=== PATIENT | male | born 2005 | race Hispanic/Latino ===

== ENCOUNTER 2025-04-03 09:22 | Inpatient (IN) | payer OTHER ==
[~2025-04-03] VITALS: Ht 170.2 cm; Wt 56.7 kg
[~2025-04-03 09:22] MED LIST: IBUP600T42 PO; METH-1164 PO
[2025-04-03 10:11] LABS: PLATELET COUNT, AUTOMATED 326 10^3/uL (150-450)
[2025-04-03 10:31] LABS: PHENCYCLIDINE URINE NEGATIVE (NEGATIVE)
[2025-04-03 10:32] LABS: AMPHETAMINES LEVEL URINE NEGATIVE (NEGATIVE); BARBITURATES URINE NEGATIVE (NEGATIVE); BENZODIAZEPINES URINE NEGATIVE (NEGATIVE); CANNABINOIDS URINE NEGATIVE (NEGATIVE); COCAINE METABOLITE URINE NEGATIVE (NEGATIVE); METHADONE URINE NEGATIVE (NEGATIVE); OPIATES URINE NEGATIVE (NEGATIVE)
[2025-04-03 10:33] LABS: ETHYL ALCOHOL (ETHANOL) 0.006 % (0.000-0.010)
[2025-04-03 10:35] LABS: SALICYLATE LEVEL < 3.0 MG/DL (<30)
[2025-04-03 10:36] LABS: ALT/SGPT 17 U/L (7.0-40); AST/SGOT 19 U/L (<34); CALCIUM LEVEL 9.1 MG/DL (8.5-10.1); CARBON DIOXIDE LEVEL 27 MMOL/L (20-31); CHLORIDE LEVEL 101 MMOL/L (98-107); CREATININE FOR GFR 1.34 MG/DL (0.70-1.30); GLOMERULAR FILTRATION RATE 77.3 (>60); POTASSIUM SERUM 4.1 MMOL/L (3.5-5.1); SODIUM LEVEL 138 MMOL/L (136-145)
[2025-04-03] MEDS ORDERED: IBUPROFEN 400 MG TAB PO PRN (12:25)
[2025-04-03] MEDS ORDERED: traZODone 50 MG TAB PO PRN (12:25)
[2025-04-03] MEDS ORDERED: ACETAMINOPHEN 325 MG TAB PO PRN (12:25)
[2025-04-03] MEDS ORDERED: MAALOX 30 ML SUSP *UDC PO PRN (12:25)
[2025-04-03] MEDS ORDERED: MOM 30 ML SUSPENSION UDC PO PRN (12:25)
[2025-04-03] MEDS ORDERED: TIZA2TA PO (12:44)
[2025-04-03] MEDS ORDERED: MELO7.5T35 PO (12:44)
[2025-04-03] MEDS ORDERED: LIDO1PAD TOP (12:44)
[2025-04-03] MEDS ORDERED: HOME MED LIST COMPLETE! XX SCH (12:45)
[2025-04-03 16:40] VITALS: BP 116/57; TEMP 98; O2SAT 98
[2025-04-04 06:11] VITALS: BP 112/81; TEMP 98.4; O2SAT 98
[2025-04-04] MEDS: FLUZONE VACCINE TRI PF(25-26) 0.5ML SYRINGE IM.IMMUN ONE (09:09)
[2025-04-04] MEDS ORDERED: LIDOCAINE 5% PATCH TOP PRN (13:55)
[2025-04-04] MEDS ORDERED: MELOXICAM 7.5 MG TAB PO PRN (13:55)
[2025-04-04 17:57] VITALS: BP 153/83; TEMP 98.9; O2SAT 98
[2025-04-05 06:18] VITALS: BP 143/66; TEMP 98.9; O2SAT 99
== END 2025-04-05 10:42 | disposition home or self-care (01) | DRG 882 ==
LOC: M ED 09:22 → M ED INP 12:21 → M PSY 16:38
PROVIDERS: ADMIT General Practice; ATTEND General Practice
DX: F43.23 Adjustment disorder with mixed anxiety and depressed mood (principal); R45.851 Suicidal ideations; Z91.013 Allergy to seafood